=== PATIENT | female | born 1980 | race Caucasian/White ===

== ENCOUNTER 2017-03-17 20:41 | Emergency (ER) | payer MEDICAID ==
[2017-03-18] MEDS ORDERED: PENICILLIN V POTASSIUM 500 MG TABLET PO ONE (00:21)
[2017-03-18] MEDS ORDERED: BUPIVACAINE HCL 0.75% INJ/PF (7.5 MG/1 ML) 10 ML SDV INJ ONE (00:22)
--- NOTE | 2017-03-18 00:23 | ER Document Report ---
HPI - HPI Patient complains to provider of: right sided jaw pain Pain Level: 5 Context: Patient is a 36-year-old female that comes emergency department for chief complaint of 2 days of worsening pain in her right lower jaw. she cannot recall dental fracture, she does have a dentist, she denies swelling, neck pain , chest pain, difficulty swallowing, fever. She denies any daily medications. - REPRODUCTIVE LMP: 6-17 Reproductive: REPORTS: : - DERM Skin Color: Normal Past Medical History - General Information source: Patient - Social History Smoking Status: Current Every Day Smoker Chew tobacco use (# tins/day): No Frequency of alcohol use: None Drug Abuse: None Lives with: Family Family History: Reviewed & Not Pertinent Patient has suicidal ideation: No Patient has homicidal ideation: No Renal/ Medical History: Denies: Hx Peritoneal Dialysis Psychiatric Medical History: Reports: Hx Anxiety, Hx Depression - Immunizations Immunizations up to date: No Hx Diphtheria, Pertussis, Tetanus Vaccination: Yes Vertical Provider Document - CONSTITUTIONAL General Appearance: WD/WN, Mild Distress - patient shifting and appears uncomfortable - INFECTION CONTROL TRAVEL OUTSIDE OF THE [place] IN LAST 30 DAYS: No - HEENT HEENT: Atraumatic, Normocephalic, PERRLA. negative: Pharyngeal Exudate, Pharyngeal Tenderness, Pharyngeal Erythema, Tympanic Membrane Red, Tympanic Membrane Bulging Mouth Diagram: 1 - fractured and degenerated tooth with mild surrounding gum erythema; no abscess, no other abnormality - NECK Neck: Normal Inspection - RESPIRATORY Respiratory: Breath Sounds Normal, No Respiratory Distress O2 Sat by Pulse Oximetry: 96 - CARDIOVASCULAR Cardiovascular: Regular Rate, Regular Rhythm - GI/ABDOMEN Gastrointestinal: Abdomen Soft, Abdomen Non-Tender - MUSCULOSKELETAL/EXTREMETIES Musculoskeletal/Extremeties: MAEW, FROM, Non-Tender - NEURO Level of Consciousness: Awake, Alert, Appropriate Course - Re-evaluation Re-evalutation: Exam consistent with pain from dental fracture and infection, patient on antibiotics, provided dental block, patient already had a dentist, discussed follow-up, return precautions, patient states understanding and agreement. - Vital Signs Vital signs: Temp Pulse Resp BP Pulse Ox 98.1 F 85 18 129/85 H 96 03/17/17 21:20 03/17/17 21:20 03/17/17 23:18 03/17/17 21:20 03/17/17 21:20 Procedures - Additional Procedures dental block Additional Procedures: Other - Right-sided inferior alveolar block performed using 3 mL's of 0.75% bupivacaine, 25-gauge needle, area was aspirated before injecting, patient with good anesthesia, no complications Discharge - Discharge Clinical Impression: Pain, dental Condition: Stable Disposition: HOME, SELF-CARE Additional Instructions: Examination and symptoms are consistent with a dental infection. Take the antibiotic as directed to completion. Take pain medication if needed. Follow-up with your dentist for management to prevent recurrence. Return to emergency department for any concerning or worsening symptoms including swelling of the face or jaw. Prescriptions: Hydrocodone/Acetaminophen [Prospect 5-325 mg Tablet] 1 - 2 tab PO ASDIR #10 tablet Penicillin V Potassium [Penicillin Vk 500 mg Tablet] 500 mg PO BID #20 tablet
[2017-03-18] MEDS ORDERED: HYDROCODONE/ACETAMINOPHEN 5-325 MG 6 TAB/DSPK PO PRN (00:50)
[2017-03-18 01:16] VITALS: BP 126/84
== END 2017-03-18 01:16 | disposition home or self-care (01) ==
LOC: ER 20:41
PROC: 3E0T3BZ Introduction of Anesthetic Agent into Peripheral Nerves and Plexi, Percutaneous Approach (ICD-10-PCS; principal; 2017-03-17)
DX: O99.611 Diseases of the digestive system complicating pregnancy, first trimester (principal); K08.89 Other specified disorders of teeth and supporting structures; O99.331 Smoking (tobacco) complicating pregnancy, first trimester; Z3A.01 Less than 8 weeks gestation of pregnancy
CPT/HCPCS: 64400; 99283; J3490 ×2

== ENCOUNTER 2017-05-22 21:22 | Emergency (ER) | payer MEDICAID ==
[2017-05-23] MEDS ORDERED: CLINDAMYCIN HCL 150 MG CAPSULE PO ONE (00:34)
[2017-05-23] MEDS ORDERED: HYDROCODONE/ACETAMINOPHEN 5-325 MG 6 TAB/DSPK PO PRN (00:37)
--- NOTE | 2017-05-23 00:39 | ER Document Report ---
HPI - HPI Patient complains to provider of: facial swelling Pain Level: 3 Context: Patient is a 36-year-old female who comes emergency department for chief complaint of dental pain with right-sided facial swelling. Symptoms started yesterday. She was treated a couple of months ago for an infection from the same site, this cleared up with penicillin without difficulty. She denies fever , sore throat, neck pain. - CONSTITUTIONAL Constitutional: DENIES: Fever, Chills - EENT EENT: DENIES: Sore Throat, Ear Pain, Nasal Drainage-Clear, Nasal Drainage- Purulent, Congestion, Eye problems - NEURO Neurology: DENIES: Headache, Weakness, Vision blurred, Dizzinesss / Vertigo - CARDIOVASCULAR Cardiovascular: DENIES: Chest pain - RESPIRATORY Respiratory: DENIES: Trouble Breathing, Coughing - GASTROINTESTINAL Gastrointestinal: DENIES: Abdominal Pain, Nausea, Patient vomiting, Diarrhea, Constipation, Black / Bloody Stools - URINARY Urinary: DENIES: Dysuria, Urgency, Frequency - REPRODUCTIVE Reproductive: DENIES: :, Postmenopausal, Abnormal bleeding / discharge - MUSCULOSKELETAL Musculoskeletal: DENIES: Extremity pain, Back Pain, Neck Pain, Swelling - DERM Skin Color: Normal Skin Problems: None - NURSING COMMENTS Comment: PT TO ED WITH COMPLAINTS OF RIGHT JAW PAIN. PT STATES THAT SHE HAS A TOOTH PULLED " A WHILE AGO", BUT THE ROOT TIP WAS STILL THERE. PT STATES THAT THE PAIN AND SWELLING STARTED THIS MORNING. PT DENIES ANY DRAINAGE. RESPIRATIONS ARE EVEN AND UNLABORED. NAD NOTED Past Medical History - General Information source: Patient - Social History Smoking Status: Current Every Day Smoker Cigarette use (# per day): Yes Frequency of alcohol use: None Drug Abuse: None Lives with: Family Family History: Reviewed & Not Pertinent Renal/ Medical History: Denies: Hx Peritoneal Dialysis Psychiatric Medical History: Reports: Hx Anxiety, Hx Depression Surgical Hx: Negative - Immunizations Immunizations up to date: No Hx Diphtheria, Pertussis, Tetanus Vaccination: Yes Vertical Provider Document - CONSTITUTIONAL General Appearance: WD/WN, No Apparent Distress - INFECTION CONTROL TRAVEL OUTSIDE OF THE [place] IN LAST 30 DAYS: No - HEENT HEENT: Atraumatic, Normocephalic. negative: Normal ENT Exam - Mild soft tissue swelling of the face with no induration or fluctuance Mouth Diagram: 1 - Fractured tooth with dental root present; no swelling of the gums, no drainable abscess noted - NECK Neck: Normal Inspection. negative: Lymphadenopathy-Left, Lymphadenopathy-Right - RESPIRATORY Respiratory: Breath Sounds Normal, No Respiratory Distress O2 Sat by Pulse Oximetry: 98 - CARDIOVASCULAR Cardiovascular: Regular Rate, Regular Rhythm - GI/ABDOMEN Gastrointestinal: Abdomen Soft, Abdomen Non-Tender - MUSCULOSKELETAL/EXTREMETIES Musculoskeletal/Extremeties: MAEW, FROM, Non-Tender - NEURO Level of Consciousness: Awake, Alert, Appropriate - DERM Integumentary: Warm, Dry, No Rash Course - Re-evaluation Re-evalutation: Patient given instructions on finding the dental clinic. Given clindamycin. Discussed return precautions. No evidence of abscess or Arturo's angina at this time. - Vital Signs Vital signs: Temp Pulse Resp BP Pulse Ox 98.6 F 82 16 120/70 98 05/23/17 00:05/23/17 00:05/23/17 00:05/23/17 00:05/23/17 00:24 Discharge - Discharge Clinical Impression: Pain, dental, Dental infection Condition: Stable Disposition: HOME, SELF-CARE Additional Instructions: Take the clindamycin as prescribed to completion. Please call for a close follow-up with the [facility], call the [facility] clinic number and ask for them for the information. Return to the emergency department for any concerning worsening symptoms including increased swelling, fever, swelling of the neck, or any other concerning symptoms. Prescriptions: Clindamycin HCl [Cleocin 150 mg Capsule] 150 mg PO Q6 #56 capsule Forms: Return to Work Referrals: [facility] [Provider Group] - Follow up as needed [facility] [Provider Group] - Follow up as needed
[2017-05-23 01:07] VITALS: BP 122/73
== END 2017-05-23 01:04 | disposition home or self-care (01) ==
LOC: ER 21:22
DX: K04.7 Periapical abscess without sinus (principal); K08.89 Other specified disorders of teeth and supporting structures; R68.84 Jaw pain; R22.0 Localized swelling, mass and lump, head; F17.210 Nicotine dependence, cigarettes, uncomplicated
CPT/HCPCS: 99282; J3490